=== PATIENT | male | born 1945 | race Caucasian/White ===

== ENCOUNTER 2024-05-15 17:08 | Inpatient (IN) | payer MEDICARE, SELFPAY ==
[2024-05-15] VITALS (16 sets, daily range): BP systolic 99–149; BP diastolic 52–76; BMI 27.3
--- NOTE | 2024-05-15 11:26 | ED.GENMED ---
History of Present Illness
<Meenakshi Ortiz PA-C - Last Filed: 05/15/24 17:14>
General
Chief Complaint: Abdominal Pain
Source: patient
Exam Limitations: none
Time Seen by Provider: 05/15/24 11:10
Nursing documentation reviewed up to this point in time: agreed with
History of Present Illness
History of Present Illness:
Patient is a 78-year-old male with history of ulcerative colitis, hypertension presenting to the emergency department for evaluation of acute onset right lower abdominal pain around 4:00 this morning. Patient states that he woke up from sleep
around 4 AM with right lower abdominal pain. Pain has become more consistent since. He has had multiple episodes of dry heaving and 1 episode of vomiting upon arrival to the emergency department. He has had very little appetite today although
states he was at his baseline and had a full dinner last night
Patient denies any exacerbating or alleviating factors of pain. There is no radiation around to back. Patient denies any associated fever, chills, urinary symptoms, hematuria, diarrhea/constipation. Did have a bowel movement this morning which
was normal.
No history of abdominal surgeries.
Review of Systems
<Meenakshi Ortiz PA-C - Last Filed: 05/15/24 17:14>
Review of Systems
Allergies reviewed?: Yes
All Other Systems: ROS reviewed and negative except as documented in HPI and ROS
Phy Exam
<Meenakshi Ortiz PA-C - Last Filed: 05/15/24 17:14>
Physical Exam
Physical Exam:
Vitals: Patient's vital signs are stable. Afebrile
General: Patient is well appearing, no acute distress. Nontoxic appearing
Skin: Warm and dry, no rashes or lesions
Head: Normocephalic, atraumatic
Eyes: Sclera nonicteric. EOMs intact. No nystagmus.
Throat: Protecting airway
Neck: Normal ROM, no cervical spine tenderness, no meningismus
Cardiac: Regular rate and rhythm, no murmurs.
Pulm: Normal respiratory effort, no wheezes, rales, rhonchi heard on exam.
Abdomen: Abdomen soft. Moderate abdominal tenderness in right lower quadrant voluntary guarding. No rebound tenderness. No CVA tenderness.
Extremities: No evidence of cyanosis or edema. Palpable distal pulses
Neuro: Grossly intact.
Psychiatric: Normal affect.
Course
<Meenakshi Ortiz PA-C - Last Filed: 05/15/24 17:14>
Orders/Labs/Results
Orders:
Orders
05/15/24 11:23
Abdomen/Pelvis w Contrast CT [CT Abd/pelvis W Iv Cont] Urgent
Comment:
Reason For Exam: RLQ pain, vomiting
0.9% Sodium Chloride 1000 ml [Nss] 1,000 ml IV BOLUS
Ondansetron Injectable [Zofran] 4 mg IV NOW STA
05/15/24 11:26
Interrogate Pacemaker- Treatment ONCE
05/15/24 11:45
Complete Blood Count/With Diff Urgent
Comprehensive Metabolic Panel Urgent
05/15/24 12:26
Ketorolac [Toradol] 15 mg IV NOW STA
05/15/24 14:17
Urinalysis Reflex To Culture Urgent
Date Specimen was Collected: 05/15/24
Time Specimen was Collected: 14:05
05/15/24 14:34
Piperacillin/Tazo 3.375 Gram [Zosyn] 3.375 gram in 50 ml IV NOW
05/15/24 14:42
Consult Surgery [SURGICAL CONSULT] Urgent
Consulting Provider: Lane Moran
Was physician already notified: Yes
05/15/24 16:01
EKG [Electrocardiogram (*1)] Urgent
Reason for Study: PreOp
05/15/24 16:29
Admit/Transfer Patient As Directed
Co-Sign Provider:
Level of Care: Inpatient admission
Assign to:: Telemetry
Physician / Group: martín grady
Diagnosis: acute appendititis, hx cardiomyopathy EF 40%
Reason for Telemetry: Arrhythmia
Date to Stop Telemetry: 05/18/24
Time to Stop Telemetry: 11:00
Reason for Hospitalization: acute appendititis, hx cardiomyopathy EF 40%
Expected length of stay greater than two midnights?: Yes
ELOS- Estimated Length of Stay in days: 3
I certify the patient meets the requirements for IP care: Yes
Code Status As Directed
Resuscitation Status: Full Code
05/15/24 16:33
PRN Pain Medication Management As Directed
May give lesser potent ordered pain med per pt: Yes
preference::
Protocol:: Medication orders for pain may be administered in a
manner that supports deferring to patient preference
when the pt is:
- Requesting an ordered lesser potent pain medication.
Least to most potent pain medications are defined
as: acetaminophen < NSAID < tramadol < opioids
(morphine, oxycodone, hydromorphone).
- Requesting a lesser dose of the same medication IF
ORDERED.
- Requesting a less intrusive route of administration
if both routes are prescribed by the provider (PO <
IV).
05/15/24 16:37
HYDROmorphone [Dilaudid] 0.25 mg IV PACU-Q5MPRN PRN
HYDROmorphone [Dilaudid] 0.5 mg IV PACU-Q5MPRN PRN
Meperidine [Demerol] 12.5 mg IV PACU-Q5MPRN PRN
Ondansetron Injectable [Zofran] 4 mg IV PACU-ONCEPRN PRN
Prochlorperazine [Compazine] 5 mg IV PACU-ONCEPRN PRN
Notify MD As Directed
Notify physician if: for SDS patients with known or suspected sleep obstructive sleep apnea, monitor in the
PACU.
Notify MD for any apneic/desaturation episodes
O2 Therapy [RESP] Urgent
Titrate/Wean O2 to maintain O2 sat greater than (%): 92
Special Instructions: -Provide supplemental oxygen to achieve O2 sat of 92% or greater.
-After 15 min, may wean O2 and discontinue if patient is able to maintain O2 sat of 92%
or greater during recovery period.
If patient is a discharge home, without oxygen therapy, notify anestheiologist if
unable to maintain O2 SAT of 92% or greater on room air for MD clearance.
05/15/24 16:38
Dexamethasone Sod Phosphate [Decadron] 20 mg .ROUTE .STK-MED ONE
Fentanyl Citrate/Pf [Sublimaze] 100 mcg .ROUTE .STK-MED ONE
Lidocaine HCl/Pf [Xylocaine-Mpf 1% Vial] 50 mg .ROUTE .STK-MED ONE
Ondansetron Injectable [Zofran] 4 mg .ROUTE .STK-MED ONE
Propofol [Diprivan] 20 ml .ROUTE .STK-MED
Rocuronium [place] [Rocuronium] 50 mg .ROUTE .STK-MED ONE
05/15/24 16:40
Bupivacaine 0.5%Pf/Epinephrin [Sensorcain-Mpf Epi 0.5%-0.0005] 30 ml .ROUTE .STK-MED ONE
05/18/24 11:00
DC Protocol for Telemetry ONCE
Abnormal Lab Results
05/15/24 05/15/24
11:45 14:17
WBC 15.2 H 10^3/uL
(4.8-10.8)
RBC 4.45 L 10^6/uL
(4.70-6.10)
MCHC 32.3 L g/dL
(33.0-37.0)
MPV 11.1 H fL
(7.4-10.4)
Abs Immat Gran (auto) 0.1 H 10^3/uL
(0-0.05)
Absolute Neuts (auto) 14.0 H 10^3/uL
(1.4-6.5)
Absolute Lymphs (auto) 0.5 L 10^3/uL
(1.2-3.4)
Neutrophils % 92.0 H %
(42.2-75.2)
Lymphocytes % 3.2 L %
(20.5-51.1)
Glucose 102 H mg/dl
(70-99)
Urine Ketones 1+ A
(Negative)
05/15/24 11:45
05/15/24 11:45
Vital Signs
Initial and Last Documented VS:
Initial Vital Signs
Temp Pulse Resp BP Pulse Ox
97.9 F 78 16 123/71 98
05/15/24 09:56 05/15/24 09:56 05/15/24 09:56 05/15/24 09:56 05/15/24 09:56
Last Documented Vital Signs
Temp Pulse Resp BP Pulse Ox
97.9 F 79 21 120/52 94
05/15/24 09:56 05/15/24 13:07 05/15/24 13:07 05/15/24 15:00 05/15/24 14:48
<Eulogio Sandhu MD - Last Filed: 05/15/24 14:36>
Orders/Labs/Results
Orders:
Orders
05/15/24 11:23
Abdomen/Pelvis w Contrast CT [CT Abd/pelvis W Iv Cont] Urgent
Comment:
Reason For Exam: RLQ pain, vomiting
0.9% Sodium Chloride 1000 ml [Nss] 1,000 ml IV BOLUS
Ondansetron Injectable [Zofran] 4 mg IV NOW STA
05/15/24 11:26
Interrogate Pacemaker- Treatment ONCE
05/15/24 11:45
Complete Blood Count/With Diff Urgent
Comprehensive Metabolic Panel Urgent
05/15/24 12:26
Ketorolac [Toradol] 15 mg IV NOW STA
05/15/24 14:17
Urinalysis Reflex To Culture Urgent
Date Specimen was Collected: 05/15/24
Time Specimen was Collected: 14:05
05/15/24 14:34
Piperacillin/Tazo 3.375 Gram [Zosyn] 3.375 gram in 50 ml IV NOW
05/15/24 14:42
Consult Surgery [SURGICAL CONSULT] Urgent
Consulting Provider: Lane Moran
Was physician already notified: Yes
05/15/24 16:01
EKG [Electrocardiogram (*1)] Urgent
Reason for Study: PreOp
05/15/24 16:29
Admit/Transfer Patient As Directed
Co-Sign Provider:
Level of Care: Inpatient admission
Assign to:: Telemetry
Physician / Group: martín grady
Diagnosis: acute appendititis, hx cardiomyopathy EF 40%
Reason for Telemetry: Arrhythmia
Date to Stop Telemetry: 05/18/24
Time to Stop Telemetry: 11:00
Reason for Hospitalization: acute appendititis, hx cardiomyopathy EF 40%
Expected length of stay greater than two midnights?: Yes
ELOS- Estimated Length of Stay in days: 3
I certify the patient meets the requirements for IP care: Yes
Code Status As Directed
Resuscitation Status: Full Code
05/15/24 16:33
PRN Pain Medication Management As Directed
May give lesser potent ordered pain med per pt: Yes
preference::
Protocol:: Medication orders for pain may be administered in a
manner that supports deferring to patient preference
when the pt is:
- Requesting an ordered lesser potent pain medication.
Least to most potent pain medications are defined
as: acetaminophen < NSAID < tramadol < opioids
(morphine, oxycodone, hydromorphone).
- Requesting a lesser dose of the same medication IF
ORDERED.
- Requesting a less intrusive route of administration
if both routes are prescribed by the provider (PO <
IV).
05/15/24 16:37
HYDROmorphone [Dilaudid] 0.25 mg IV PACU-Q5MPRN PRN
HYDROmorphone [Dilaudid] 0.5 mg IV PACU-Q5MPRN PRN
Meperidine [Demerol] 12.5 mg IV PACU-Q5MPRN PRN
Ondansetron Injectable [Zofran] 4 mg IV PACU-ONCEPRN PRN
Prochlorperazine [Compazine] 5 mg IV PACU-ONCEPRN PRN
Notify MD As Directed
Notify physician if: for SDS patients with known or suspected sleep obstructive sleep apnea, monitor in the
PACU.
Notify MD for any apneic/desaturation episodes
O2 Therapy [RESP] Urgent
Titrate/Wean O2 to maintain O2 sat greater than (%): 92
Special Instructions: -Provide supplemental oxygen to achieve O2 sat of 92% or greater.
-After 15 min, may wean O2 and discontinue if patient is able to maintain O2 sat of 92%
or greater during recovery period.
If patient is a discharge home, without oxygen therapy, notify anestheiologist if
unable to maintain O2 SAT of 92% or greater on room air for MD clearance.
05/15/24 16:38
Dexamethasone Sod Phosphate [Decadron] 20 mg .ROUTE .STK-MED ONE
Fentanyl Citrate/Pf [Sublimaze] 100 mcg .ROUTE .STK-MED ONE
Lidocaine HCl/Pf [Xylocaine-Mpf 1% Vial] 50 mg .ROUTE .STK-MED ONE
Ondansetron Injectable [Zofran] 4 mg .ROUTE .STK-MED ONE
Propofol [Diprivan] 20 ml .ROUTE .STK-MED
Rocuronium [place] [Rocuronium] 50 mg .ROUTE .STK-MED ONE
05/15/24 16:40
Bupivacaine 0.5%Pf/Epinephrin [Sensorcain-Mpf Epi 0.5%-0.0005] 30 ml .ROUTE .STK-MED ONE
05/18/24 11:00
DC Protocol for Telemetry ONCE
Abnormal Lab Results
05/15/24 05/15/24
11:45 14:17
WBC 15.2 H 10^3/uL
(4.8-10.8)
RBC 4.45 L 10^6/uL
(4.70-6.10)
MCHC 32.3 L g/dL
(33.0-37.0)
MPV 11.1 H fL
(7.4-10.4)
Abs Immat Gran (auto) 0.1 H 10^3/uL
(0-0.05)
Absolute Neuts (auto) 14.0 H 10^3/uL
(1.4-6.5)
Absolute Lymphs (auto) 0.5 L 10^3/uL
(1.2-3.4)
Neutrophils % 92.0 H %
(42.2-75.2)
Lymphocytes % 3.2 L %
(20.5-51.1)
Glucose 102 H mg/dl
(70-99)
Urine Ketones 1+ A
(Negative)
05/15/24 11:45
05/15/24 11:45
Vital Signs
Initial and Last Documented VS:
Initial Vital Signs
Temp Pulse Resp BP Pulse Ox
97.9 F 78 16 123/71 98
05/15/24 09:56 05/15/24 09:56 05/15/24 09:56 05/15/24 09:56 05/15/24 09:56
Last Documented Vital Signs
Temp Pulse Resp BP Pulse Ox
97.9 F 79 21 120/52 94
05/15/24 09:56 05/15/24 13:07 05/15/24 13:07 05/15/24 15:00 05/15/24 14:48
<Meenakshi Ortiz PA-C - Last Filed: 05/15/24 17:14>
MDM/Problems Addressed
Differential Diagnosis Includes:
Not limited to: Appendicitis, diverticulitis, incarcerated hernia, kidney stone, pyelonephritis, constipation, bowel obstruction, IBD flare, etc.
MDM/Problems Addressed:
78-year-old male presenting with acute onset right lower quadrant abdominal pain associated with vomiting. No fevers or associated urinary symptoms. No history of abdominal surgeries. Patient's vital signs are stable, he is afebrile. Physical
exam as above. Patient does have mild to moderate tenderness in right lower quadrant with voluntary guarding. No palpable masses. No CVA tenderness. Cardio/pulmonary assessment unremarkable. Differential diagnosis broad at this time although
considerations include possible appendicitis, diverticulitis, kidney stone, cystitis, question hernia, etc. Will check basic labs, urine, CT abdomen/pelvis. Will give fluids, Zofran. Will closely monitor and reassess update above.
Chronic conditions affecting care:
N/A
Acute Exacerbation and/or Progression of Chronic Illness:
N/A
<Meenakshi Ortiz PA-C - Last Filed: 05/15/24 17:14>
*Radiology
Radiology exam reviewed: preliminary read by ED provider and radiology read reviewed (Acute appendicitis with possible small perforation)
*Pulse Oximetry
Patient hypoxic: no
*EKG
Interpreted by ED Provider?: NA
*Supervisor Shipping Room Interpretation
Rate: Supervisor Shipping Room- N/A
*Critical Care Note
Total Time (30-74mins, 75-104mins- exclusive of procedures): Not Applicable
<Meenakshi Ortiz PA-C - Last Filed: 05/15/24 17:14>
Update Note
Update Note:
Update 1:30 PM: Labs reviewed. Patient does have a leukocytosis of 15.2 with left shift. Otherwise no clinically significant abnormalities. Urinalysis pending. CT pending.
Update 2:30 PM: Into reassess patient at bedside who does have improvement in pain following Toradol urinalysis shows no signs of infection. CT scan shows suspected acute appendicitis with possible small localized perforation. Case was discussed
with general surgeon, Dr. Moran who will come down to evaluate patient at bedside. Patient started on IV Zosyn in emergency department and admitted to hospitalist team in stable condition. Plan for likely OR later today.
ED Attending Note
<Meenakshi Ortiz PA-C - Last Filed: 05/15/24 17:14>
-
Portions of this chart may have been created with voice recognition software.� Occasional wrong word or��sound alike� substitutions may have occurred due to the inherent limitations of voice recognition software.
<Eulogio Sandhu MD - Last Filed: 05/15/24 14:36>
ED Attending Note
Patient seen and examined by attending physician: Yes
ED Attending Note:
I have seen and evaluated the patient with a [id number] encounter. I have spoken to the advance practicer provider and involved in the medical history, the physical exam, medical decision making.
Evaluation and management service: agree unless noted differently below.
Results interpretation: agree unless noted differently below.
Focused HPI: 78-year-old male with past medical history as document presents to the emergency room for evaluation of abdominal pain. Patient reports onset of symptoms overnight around 4 AM and have been constant since that time. He reports pain in
the right lower quadrant radiates towards the inguinal region. No clear triggering or relieving factors noted. Associated with nausea and dry heaves. No diarrhea or constipation. No urinary symptoms. No fevers or chills. Denies similar
symptoms in the past. Does have prior history of inguinal hernias.
Physical exam: Awake alert no distress. Vital signs normal. Abdomen soft, tender to palpation right lower quadrant and right pelvic region; no scrotal swelling noted.
Medical Decision Makin-year-old male presents for evaluation of right lower quadrant abdominal pain since 4 AM. Vitals and exam as above. Labs were sent off in triage including CBC which showed a leukocytosis, CMP shows no clinically
significant abnormalities. Urinalysis pending. Sent for CT abdomen pelvis. Pain control and fluids. Reassess.
CT shows acute appendicitis with likely contained perforation. Treat with antibiotics. Discussed with general surgery. Admission.
Discharge Plan
Departure
Patient Disposition: Admit
Date of Disposition: 05/15/24
Time of Disposition: 14:51
Presentation/result/management discussed w/ accepting MD/DO: Hospitalist
Discharge Problem:
Acute appendicitis
Interventions
Interventions:
*Risk Screen - Suicide Last Done: 05/15/24 09:56
*General Assessment Last Done: 05/15/24 09:56
*Neglect/Abuse Screening Last Done: 05/15/24 09:56
ED- Fall Risk Assessment Last Done: 05/15/24 11:25
*ED COVID-19 Vaccine History Last Done: 05/15/24 11:25
VO-Hboqxa-Nckgnjhvrs Assessment Last Done: 05/15/24 11:25
[2024-05-15 11:58] LABS: % Basophils 0.3 % (0-2); % Eosinophils 0.1 % (0-6); % Immature Granulocytes 0.4 % (0-0.5); % Lymphocytes 3.2 % (20.5-51.1); Absolute Basophils 0.1 10^3/uL (0-0.2); Absolute Immature Granulocytes 0.1 10^3/uL (0-0.05); Absolute Lymphocytes 0.5 10^3/uL (1.2-3.4); Absolute Monocytes 0.6 10^3/uL (0.1-0.6); Hematocrit 41.8 % (39.0-52.0); Hemoglobin 13.5 g/dL (13.0-18.0); Mean Corp Hgb Conc. 32.3 g/dL (33.0-37.0); Mean Corpuscular Hgb 30.3 pg (27.0-31.0); Mean Corpuscular Volume 93.9 fL (80.0-94.0); Mean Platelet Volume 11.1 fL (7.4-10.4); Nucleated Red Blood Cells % 0 % (-); Platelet Count 182 10^3/uL (130-400); Red Blood Cell Count 4.45 10^6/uL (4.70-6.10); Red Cell Dist. Width 14.5 % (11.5-14.5); White Blood Cell Count 15.2 10^3/uL (4.8-10.8)
[2024-05-15] MEDS: ZOFRAN 4 MG IV (12:02)
[2024-05-15] MEDS: NSS 1000 IV ×2 (12:02→20:00)
[2024-05-15 12:18] LABS: ALT (SGPT) 34 U/L (0-50); AST (SGOT) 38 U/L (17-59); Albumin 4.3 g/dl (3.5-5.0); Alkaline Phosphatase 103 U/L (38-126); Blood Urea Nitrogen 16 mg/dl (9-20); Calcium 9.3 mg/dl (8.4-10.2); Carbon Dioxide 27 mmol/L (22-30); Chloride 100 mmol/L (98-107); Estimated Creatinine Clearance 65 ml/min; Glucose 102 mg/dl (70-99); Potassium 4.3 mmol/L (3.5-5.1); Sodium 136 mmol/L (135-145); Total Bilirubin 0.7 mg/dl (0.2-1.3); Total Protein 7.1 g/dl (6.3-8.2); eGFR > 60.00
[2024-05-15] MEDS: TORADOL 15 MG IV (13:04)
[2024-05-15 14:45] LABS: Urine Albumin Negative (Neg - Trace); Urine Bilirubin Negative (Negative); Urine Character Clear (Clear); Urine Color Yellow; Urine Glucose Negative (Negative); Urine Ketone 1+ (Negative); Urine Leukocyte Negative (Negative); Urine Nitrite Negative (Negative); Urine Occult Blood Negative (Negative); Urine Urobilinogen Negative (Neg - 1+)
[2024-05-15] MEDS: ZOSYN 50 IV ×2 (15:00→21:05)
--- NOTE | 2024-05-15 15:14 | HPS.HSE ---
Family Physician
-
Family Physician: Marisol Mcintosh
Chief Complaint
-
Right lower quadrant abdominal pain onset 4 AM with 1 episode vomiting
History of Present Illness
78-year-old male complaining of acute onset right lower quadrant abdominal pain at 4:00 this a.m. He reports he woke up from sleep at around 4 AM with right lower quadrant abdominal pain that has become more consistent. He has had several episodes
of dry heaving with 1 episode of vomiting upon arrival to the ER. He does note decreased appetite today, but had a full dinner last night. He denies any exacerbating or alleviating factors there is no radiation around to the back. He denies
fever, chills, urinary symptoms, diarrhea, constipation, chest pain, palpitations, shortness of breath, cough, headache, dizziness. He does have past medical history of ulcerative colitis, HTN, BPH ,HLD, gout, nonobstructive CAD cardiac cath 15
years ago one-vessel 58% no stents placed, Permanent pacemaker placed June 2013�syncope October 2013 pacemaker lead broke and it was removed then changed to pacemaker defibrillator in December [address] Brandon Mcclain, cardiomyopathy EF
25% August> EF 40% January 2024 had echo at cardiology office
Medical History
Past Medical History
Past Medical History: Reports Other
Additional Past Medical History:
ulcerative colitis
HTN
BPH
HLD
gout
nonobstructive CAD�via cath September 2023 [facility]
Permanent pacemaker secondary to syncope placed June 2013�syncope October 2013 pacemaker lead broke and it was removed then changed in December 2013
Pacemaker with DEFIBRILLATOR placed in November [address] Brandon Mcclain
Cardiomyopathy unclear type EF per patient 25% in August and September started on Entresto then echo January 2024 EF 40%
Past Surgical History: Reports Other
Additional Past Surgical History:
Bilateral inguinal hernia repair
Permanent pacemaker placed June 2013�syncope October 2013 pacemaker lead broke and it was removed then changed to pacemaker defibrillator in November [address] Brandon Mcclain
Cardiac 15 years ago one-vessel
Inguinal hernia bilateral repair
Social History
Tobacco: Non-smoker
Alcohol: Occasional (3 drinks a week 6 to 8 ounces wine)
Personal: (Has been since 2005 but not legally )
Living: Alone ([facility])
Employment: Retired
Family History
Family History: Other (Father age 61 CABG, HTN, age 80 complications of endocarditis, mother age 94 history of mild dementia, HTN, lack of blood pressure medicine being given at senior care which led to a stroke and cause
, 1 brother alcohol abuse 1 brother living age 72 hypertens)
Allergies / Home Medications
Allergies reflects when Allergies were last updated in [employer].
Home Medications with original date entered in [employer]
Allergy/Medication List:
Allergies
Allergy/AdvReac Type Severity Reaction Status Date / Time
No Known Allergies Allergy Verified 05/15/24 09:56
Home Medications
Aspir-81 162 mg PO DAILY 05/15/24
allopurinol 300 mg tablet 300 mg PO DAILY 05/15/24
atorvastatin 40 mg tablet (Lipitor) 40 mg PO HS 05/15/24
carvedilol 6.25 mg tablet (Coreg) 12.5 mg PO DAILY 05/15/24
finasteride 5 mg tablet 5 mg PO DAILY 05/15/24
sacubitril 97 mg-valsartan 103 mg tablet (Entresto) 1 tab PO DAILY 05/15/24
sulfasalazine 500 mg tablet 500 mg PO AC 05/15/24
tamsulosin 0.4 mg capsule (Flomax) 0.8 mg PO QPM 05/15/24
trazodone 50 mg tablet 50 mg PO HS 05/15/24
Review of Systems
-
History Source: Patient
A 12 point ROS was completed and negative except as noted: Yes
Constitutional: Denies Fever, Fatigue or Chills
EENT: Denies Sore Throat, Mouth Pain, Mouth Swelling or Runny Nose
Respiratory: Denies Cough or Trouble Breathing
Cardiac: Denies Chest Pain, Diaphoresis, Palpitations or Syncope
Abdomen/GI: Reports Abdominal Pain (Right lower/umbilical), Nausea and Vomiting ([address] ER); Denies Diarrhea, Constipated, Bloody Stools or Black Stools
: Denies Dysuria, Frequency, Flank Pain, Incontinence, Difficulty Voiding, Urgency, Bleeding or Dark Urine
Musculoskeletal: Denies Joint Pain or Edema
Skin: Denies Itching or Rash
Neurological: Denies Dizzy, Headache or Weakness
Endocrine: Reports No Symptoms
Hematologic/Lymphatic: Reports No Symptoms
Psych: Reports Calm
Physical Exam
Vital Signs
Vital Signs
Temp Pulse Resp BP Pulse Ox
97.9 F 79 21 120/52 94
05/15/24 09:56 05/15/24 13:07 05/15/24 13:07 05/15/24 15:00 05/15/24 14:48
Physical Exam
General: Comfortable and Conversant; No Pain, Fever or Chills
HEENT: NormoCephalic, Anicteric, Moist mucous membranes, PERRLA, [place] Conjunctivae and No Ptosis
Respiratory: Clear; No Wheezes, Rales or Rhonchi
Cardiac: S1/S2 and Regular Rhythm; No Murmur, Rub, Gallop or Peripheral Edema
Breast: Deferred by me
GI: Soft, Non Distended, Normal Bowel Sounds, Tender (Right umbilical) and No Hepatosplenomegaly
Rectal: Deferred by Provider
Genito-urinary: Deferred by me
Musculoskeletal: No Clubbing, No Cyanosis and No Edema
Skin: Warm and Dry; No Rash
Neuro: AO x 3, No Motor Deficits, Nonfocal/grossly intact, Cranial Nerves Intact and No Sensory Deficits; No Slurred Speech, Facial Droop, Tremors or Sedated
Psych: Calm
Laboratory Results
-
05/15/24 11:45
05/15/24 11:45
Laboratory Results
Total Bilirubin 0.7 mg/dl (0.2-1.3) 05/15/24 11:45
AST 38 U/L (17-59) 05/15/24 11:45
ALT 34 U/L (0-50) 05/15/24 11:45
Alkaline Phosphatase 103 U/L (38-126) 05/15/24 11:45
Data Reviewed
-
CT Scan: Report Reviewed by me
Lab Data: Labs Reviewed by me
Impression/Plan
-
Impression/plan:
Admit to telemetry
#Acute appendicitis
WBC 15.2 with left shift, HR 80, 97.9F, 140/73
-Consult general surgery�DrMario Alberto Moran aware
-N.p.o. except meds possible OR tonight 05/15/2024
-IV NSS 1 L given in ER, continue IV NSS 100 cc an hour
-IV Zofran
-IV Toradol given in ER for pain
-IV Zosyn 3.375 g given in ER, continue Zosyn
-Follow CBC, CMP
-Check preop EKG
CT abdomen pelvis with IV contrast:
1. Marked right lower quadrant inflammatory changes likely centered about a small tubular structure most likely representing the appendix and most likely representing ACUTE APPENDICITIS evaluation overall
limited without oral contrast, but with findings suggesting accompanying small localized perforation..
2. Prostate gland is enlarged with extrinsic impression upon the urinary bladder base.
3. Mild relative diffuse thickening of the wall of the urinary bladder most likely on the basis of bladder outlet obstruction
4. Small simple left renal cyst.
5. Subcentimeter low-attenuation right renal lesion too small to characterize.
#Ulcerative colitis Dx 40 years ago
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
-Continue sulfasalazine 500 mg before meals when allowed to eat
#Permanent Pacemaker�syncope ,placed June 2013�syncope October 2013 pacemaker lead broke and it was removed
-changed to PACEMAKER/ DEFIBRILLATOR in December [address] Brandon ASH [facility]
#Cardiomyopathy unclear type
-EF per patient 25% in August and September started on Entresto then echo January 2024 EF 40%
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 Brandon ASH [facility]
#Nonobstructive CAD
Had cardiac cath September 2023 with some vessels occlusion less than 40% by Dr. Brandon ASH at [facility]
-Continue aspirin 162 mg daily last dose was yesterday 05/14/2024 in a.m. will continue after surgery
-Continue Lipitor 40 mg at bedtime, Coreg 12.5 mg daily
#HTN�benign
BP 140/73
-Continue Coreg 12.5 mg p.o. daily
#HLD
-Continue Lipitor 40 mg at bedtime
#BPH
Prostate gland is enlarged with extrinsic impression upon the urinary bladder base on CT today 05/15/2024
-Continue Flomax 0.8 mg every afternoon, finasteride 5 mg daily
-Bladder scan per protocol
#Gout
-Continue allopurinol 300 mg daily
DVT prophylaxis
SCDs until after surgery then consider subcu Lovenox or heparin
Full code patient states his daughter and son would be his decision makers he also has his stepson who would also away and
--- NOTE | 2024-05-15 15:31 | CON.GS ---
Consultation
-
Requesting Provider: Diana
Performing Provider: Luisa
Reason for Consultation: Acute appendicitis
Medical History
-
Chief Complaint: Abd pain
History of Present Illness:
78M with acute onset abd pain that woke him from sleep about 4AM. Localized to RLQ without radiation or migration. Endorses nausea with single emesis episode upon arrival to ED. Currently endorses anorexia. Denies f/c. Hx of UC but this felt
different, he is stable on sulfasalazine. Last c-scope about 3 years ago with mild rectal/sigmoid inflammation/ulceration.
Past Medical History
Past Medical History: CAD and Other (gout, HLD, BPH, HTN, UC)
Past Surgical History: Cardiac (pacer) and Hernia Repair (B/L IHR; pacemaker implantation)
Social History
Tobacco: Non-Smoker
Alcohol: None
Drug: None
Family History
Family History: Reviewed & Noncontributory
Allergies / Home Medications
Allergy/AdvReac Type Severity Reaction Status Date / Time
No Known Allergies Allergy Verified 05/15/24 09:56
�Medication �Instructions �Recorded �Confirmed �Type
allopurinol 300 mg tablet 300 mg PO DAILY 05/15/24 05/15/24 History
atorvastatin 40 mg tablet (Lipitor) 40 mg PO HS 05/15/24 05/15/24 History
carvedilol 6.25 mg tablet (Coreg) 12.5 mg PO DAILY 05/15/24 05/15/24 History
finasteride 5 mg tablet 5 mg PO DAILY 05/15/24 05/15/24 History
sacubitril 97 mg-valsartan 103 mg 1 tab PO DAILY 05/15/24 05/15/24 History
tablet (Entresto)
sulfasalazine 500 mg tablet 500 mg PO AC 05/15/24 05/15/24 History
tamsulosin 0.4 mg capsule (Flomax) 0.8 mg PO QPM 05/15/24 05/15/24 History
trazodone 50 mg tablet 50 mg PO HS 05/15/24 05/15/24 History
Review of Systems
-
A 10 point review of systems was completed, and was negative except as per HPI.
Physical Exam
Vital Signs
Temp Pulse Resp BP Pulse Ox
97.9 F 79 21 120/52 94
05/15/24 09:56 05/15/24 13:07 05/15/24 13:07 05/15/24 15:00 05/15/24 14:48
05/14/24 05/15/24 05/16/24
06:59 06:59 06:59
Actual Weight 72 kg
Body Mass Index (BMI) 27.3
Lab Results
05/15/24 11:45
05/15/24 11:45
WBC 15.2 10^3/uL (4.8-10.8) H 05/15/24 11:45
Hgb 13.5 g/dL (13.0-18.0) 05/15/24 11:45
Hct 41.8 % (39.0-52.0) 05/15/24 11:45
Plt Count 182 10^3/uL (130-400) 05/15/24 11:45
Abs Immat Gran (auto) 0.1 10^3/uL (0-0.05) H 05/15/24 11:45
Neutrophils % 92.0 % (42.2-75.2) H 05/15/24 11:45
Physical Exam
General: Well Developed, Well Nourished and No Apparent Distress
GI: Soft, Non Tender (very mild ttp with deep palp just medial to RLQ) and Non Distended
Skin: Warm and Dry
Neuro: AO x 3
Psych: Calm
Data Reviewed
-
CT Scan: Image Personally Visualized and interpreted, Report Reviewed by me, Discussed with Physician, Discussed with Nurse and Discussed with Patient
Labs: Labs Reviewed by me, Discussed with Physician, Discussed with Nurse and Discussed with Patient
Old Records: Reviewed
Assessment / Plan
-
78M with acute appendicitis with possible perforation in setting of well-controlled UC
AFVSS, minimal ttp though he received toradol just prior to my encounter
WBC 15K
CT A/P with stranding around appendix and a single bubble of extraluminal air, possible small fluid pocket without rim enhancement
Plan:
Admit to Hospitalist
IV abx
OCTOR for lap appy
NPO for now
PRN pain meds/anti-emetics
SCDs
--- NOTE | 2024-05-15 15:45 | W.PN.UPDATE ---
Update Note
Progress Note Update
This note serves as an addendum to the H&P by photoengraving finisher REYMUNDO Vanesa JUAREZ
HPI
78M HX ulcerative colitis, HTN, BPH ,HLD, gout, permanent pacemaker seen at ER:
- Woke up with acute onset RLQ abdominal pain at 4 AM then the pain become more consistent
- - denies any exacerbating or alleviating factors there is no radiation around to the back.
- several episodes of dry heaving with 1 episode of vomiting upon arrival to the ER.
- decreased appetite today
- had a full dinner last night.
ROS
- denies fever, chills, urinary symptoms, diarrhea, constipation
- denies chest pain, palpitations, shortness of breath, cough, headache, dizziness.
PHX: see above
Reviewed VS: stable and unremarkable
Vital Signs
Temp Pulse Resp BP Pulse Ox
97.9 F 79 21 120/52 94
05/15/24 09:56 05/15/24 13:07 05/15/24 13:07 05/15/24 15:00 05/15/24 14:48
PE
Gen: NAD, not toxic
HEENT: anciteric
Neck: supple
Lungs: CTA
Cor: RRR S1 S2
Abdomen: soft BS
COMBINATION MACHINE TENDER: AAO3
MS: no edema
Psych: normal mood and affect
Data
Laboratory Tests
05/15/24
11:45
WBC 15.2 H
eGFR > 60.00
CT Abd/pelvis W Iv Cont
- Marked RLQ inflammatory changes likely centered about a small tubular structure most likely representing the appendix and most likely representing ACUTE APPENDICITIS evaluation overall limited without oral contrast, but with findings suggesting
accompanying small localized perforation.
- Small simple left renal cyst.
- Subcentimeter low-attenuation right renal lesion too small to characterize.
Last hospitalist admission:
ASSESSMENT & PLAN
Pending Rx reconciliation
Acute appendicitis +/_ small localized perforation.
- agree with NPO and IVF, PRN algesia
- Empiric IV Zosyn
- IV Zofran PRN
- Follow CBC, CMP
- GS consulted
Implant permanent pacemaker
Benign HTN
- ont. Coreg 12.5 mg p.o. daily
- cont Entresto
Ulcerative colitis HX
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
- Continue sulfasalazine 500 mg before meals when allowed to eat
HLD
- 2 Baby ASA daily
- Continue Lipitor 40 mg at bedtime
BPH
Prostate gland is enlarged with extrinsic impression upon the urinary bladder base on CT today 05/15/2024
- Continue Flomax 0.8 mg every afternoon, finasteride 5 mg daily
- Bladder scan per protocol
Gout
- Continue allopurinol 300 mg daily
DVT Px: SCD
Full code
IP MS
--- NOTE | 2024-05-15 16:46 | W.SUR.PREOP ---
Pre-Operative Surgical Note
-
I have examined this patient prior to the performance of the scheduled procedure.
The patient's condition is unchanged from the time of the current History and
Physical and the patient is able to undergo the scheduled procedure.
--- NOTE | 2024-05-15 18:34 | W.IMMPOSTOP ---
Surgical Immed Post Op Note
-
Primary Surgeon: Poncho Perry MD
Assisting Surgeon: None
Pre-op Diagnosis: Perforated appendicitis
Post-op Diagnosis: Same
Procedure Performed:
1. Laparoscopic appendectomy
2. Drainage of intra-abdominal abscess
Anesthesia Type: General
Specimen / Cultures:
1. Pelvic fluid for culture aerobic and anaerobic
2. Appendix
Estimated Blood Loss: 3 cc
Complications: None
Operative Findings: Perforated appendicitis, with the appendix draped over the pelvic brim and an abscess in the rectovesicular space. This was cultured and then suctioned and irrigated until clear. The base of the appendix appeared healthy and so
was taken with 0 PDS Endoloops x 2.
POST OP PLAN:
Imaging: None
Labs: Routine AM
Diet: Clears tonight, can advance diet tomorrow to regular though potential ileus is possible given the perforated nature of this appendicitis
Analgesia: Tylenol 650mg q6 Saulo, Dilaudid 0.5mg q2h PRN
Neuro/vascular checks: q4h
AC/AP: Hold Therapeutic AC, Ok for DVT PPx
Activity: Ad Meghana
Wound/Incisions/Drains: Routine, RICARDO to bulb suction.
Abx: Will do a 4-day course of postop antibiotics
Dispo: RNF, anticipate discharge home with or without drain depending on output and clinical course
--- NOTE | 2024-05-15 18:38 | OR.RPT ---
Operative Report
Operative Report
Patient Name: Bhavesh Cole
: 1945
Date of Operation: 05/15/2024
Preoperative Diagnosis: Acute perforated appendicitis
Postoperative Diagnosis: Same
Procedure(s):
1. Laparoscopic Appendectomy
2. Drainage of intra-abdominal abscess
Surgeon(s):
Dr. Perry
Head Of Global Strategic Partnerships(s):
None
Anesthesia: General
Estimated Blood Loss: 3 cc
Urine Output: None
Drains/Lines/Implants: None
Specimens:
1. Appendix
2. Pelvic fluid for Gram stain and culture aerobic and anaerobic.
HPI/Surgical Indications:
This is a 78-year-old male with a history of UC who presents with a 1 day history of abdominal pain. Exam, labs and imaging are consistent with perforated acute appendicitis. Risks/Benefits/Alternatives were discussed at length, and the patient
agreed to proceed with surgery.
Operative Findings: Perforated appendicitis, with the appendix draped over the pelvic brim and an abscess in the rectovesicular space. This was cultured and then suctioned and irrigated until clear. The base of the appendix appeared healthy and so
was taken with 0 PDS Endoloops x 2.
Procedure Description:
The patient was placed in the supine position, with the left arm tucked, and general anesthesia was induced. The abdomen was prepared and draped in a sterile fashion so as to expose the entire abdomen. A surgical time out was taken. Abdominal access
was obtained with an 12 mm infra-umbilical Charli Entry. After confirming no injury on entrance, two additional 5mm ports were placed in the suprapubic area just off midline and in the left lower quadrant. The patient was placed in Trendelenberg
with the right slightly up . The appendix was identified and a window was created in the mesoappendix. The appendix was perforated near the distal third as it was lying over the pelvic brim. There was a fairly large abscess cavity in the pelvis
that was suctioned and irrigated until clear.. Using a laparoscopic bipolar energy device, the meso appendix was divided. The base of the appendix appeared uninvolved and was ligated/divided using two 0-PDS Endoloops and the energy device. The
appendix was placed in a specimen retrieval bag. A 19 Greek round Flaco drain was introduced through the left lateral port and draped across the pelvis and up the right colic gutter. This was secured to the skin with a 2-0 nylon suture.
Hemostasis was confirmed and the ports were removed under visualization. The specimen was passed off the field. The umbilical port was closed with a [id number] 0-PDS and the skin for all three ports was closed with interrupted monocryls and
covered with dermabond. The patient was awoken from anesthesia in good condition and transported to the recovery area.
I was the attending physician and performed the procedure with no assistance. I was present for all portions of the case.
Poncho Perry MD
--- NOTE | 2024-05-15 19:45 | PTCARENOTE ---
Pt a 78 y/o male arrived from PACU post Lap Appy & drainage of abscess with a RICARDO drain to LLQ, daughter and friend at beside. Pt AOx3, bed in a low position, call light in reach, care ongoing.
[2024-05-15] MEDS: FLOMAX 0.8 MG PO (20:05)
[2024-05-15] MEDS: LIPITOR 40 MG PO (21:04)
[2024-05-15] MEDS: DESYREL 50 MG PO (21:05)
[2024-05-15] MEDS: DILAUDID 0.5 MG IV (22:03)
[2024-05-16] VITALS (7 sets, daily range): BP systolic 84–126; BP diastolic 48–95; PULSE 79
[2024-05-16] MEDS: ZOSYN 50 IV ×4 (03:15→21:37)
[2024-05-16] MEDS: PERCOCET 5/325 1 TABLET PO ×3 (03:30→20:43)
--- NOTE | 2024-05-16 04:00 | DOWNTIME ---
There was a [employer] Client Collection Coordinator Downtime on 05/16/2024 from 0100 to 05/16/2024 at 0350. Downtime documentation of patient's care, including medication administrations, has been reconciled in the electronic record per guidelines. Refer to the
patient's paper chart under the miscellaneous tab to see printed paper medication records and downtime forms.
[2024-05-16 06:43] LABS: % Basophils 0.1 % (0-2); % Immature Granulocytes 0.5 % (0-0.5); % Lymphocytes 2.3 % (20.5-51.1); % Monocytes 2.2 % (1.7-9.3); % Neutrophils 94.9 % (42.2-75.2); Absolute Immature Granulocytes 0.1 10^3/uL (0-0.05); Absolute Lymphocytes 0.5 10^3/uL (1.2-3.4); Absolute Monocytes 0.5 10^3/uL (0.1-0.6); Absolute Neutrophils 19.6 10^3/uL (1.4-6.5); Hematocrit 35.1 % (39.0-52.0); Mean Corp Hgb Conc. 34.2 g/dL (33.0-37.0); Mean Corpuscular Hgb 31.5 pg (27.0-31.0); Mean Corpuscular Volume 92.1 fL (80.0-94.0); Mean Platelet Volume 11.9 fL (7.4-10.4); Nucleated Red Blood Cells % 0 % (-); Platelet Count 174 10^3/uL (130-400); Red Blood Cell Count 3.81 10^6/uL (4.70-6.10); Red Cell Dist. Width 14.5 % (11.5-14.5); White Blood Cell Count 20.7 10^3/uL (4.8-10.8)
[2024-05-16 07:00] LABS: ALT (SGPT) 24 U/L (0-50); AST (SGOT) 26 U/L (17-59); Albumin 3.2 g/dl (3.5-5.0); Alkaline Phosphatase 62 U/L (38-126); Blood Urea Nitrogen 18 mg/dl (9-20); Calcium 8.3 mg/dl (8.4-10.2); Carbon Dioxide 26 mmol/L (22-30); Chloride 100 mmol/L (98-107); Estimated Creatinine Clearance 52 ml/min; Glucose 104 mg/dl (70-99); Potassium 4.1 mmol/L (3.5-5.1); Sodium 135 mmol/L (135-145); Total Bilirubin 0.9 mg/dl (0.2-1.3); Total Protein 5.7 g/dl (6.3-8.2); eGFR > 60.00
[2024-05-16] MEDS: ZYLOPRIM 300 MG PO (08:52)
[2024-05-16] MEDS: PROSCAR 5 MG PO (08:52)
[2024-05-16] MEDS: ASPIR LOW (ENTERIC COATED) 162 MG PO (08:53)
[2024-05-16] MEDS: COREG PO (08:56)
[2024-05-16] MEDS: AZULFIDINE 500 MG PO ×3 (10:24→16:29)
[2024-05-16] MEDS: ENTRESTO 97 MG/103 MG 1 TAB PO (10:24)
[2024-05-16] MEDS: TYLENOL 650 MG PO (11:34)
--- NOTE | 2024-05-16 11:39 | CM ---
Patient sen bedside.
IA completed.
Patient up ambulating in halls and room.
Patient independent prior to admission without assistive deives.
Patient with o hx VN.
Denies home care needs at this time.
SO will transport home.
IMM completed.
PCP: Dr Pisano
Pharmacy:: [facility]
Plan: home no needs anticipated.
--- NOTE | 2024-05-16 12:55 | W.PN.GS2 ---
Today's Communication / Plan
-
Trend WBC
Assessment / Plan
-
78M POD1 s/p lap appy for perforated appendicitis with abscess
Doing well post-op
AFVSS
WBC increased 15K --> 20K, suspect reactive 2/2 surgery
Plan:
Cont reg diet
Cont zosyn
Trend WBC
Ambulate
DVT ppx
If WBC improved tomorrow would consider DC with 2 additional days abx (total 4 day course)
Subjective Data
-
Date of Service: May 16, 2024
AFVSS, feels well, pain controlled, OOBTC, voiding, temi PO
Objective Data
-
Intake and Output
05/15/24 05/16/24 05/17/24
06:59 06:59 06:59
Intake Total 820 / 820
Output Total 330 / 330
Balance 490 / 490
Intake:
IV fluids (Total) 720 / 720
IV piggybacks 100 / 100
Output:
Drain Output (Total) 30 / 30
Left Lower Abdomen Nestor- 30 / 30
Mejia
Urine, Voided 300 / 300
Vital Signs
Temp Pulse Resp BP Pulse Ox
98.0 F 79 16 126/95 96
05/16/24 11:05 05/16/24 11:05 05/16/24 11:05 05/16/24 11:05 05/16/24 11:05
Lab Results
05/16/24 04:42
05/16/24 04:42
Calcium 8.3 mg/dl (8.4-10.2) L 05/16/24 04:42
Total Bilirubin 0.9 mg/dl (0.2-1.3) 05/16/24 04:42
AST 26 U/L (17-59) 05/16/24 04:42
ALT 24 U/L (0-50) 05/16/24 04:42
Alkaline Phosphatase 62 U/L (38-126) 05/16/24 04:42
Total Protein 5.7 g/dl (6.3-8.2) L 05/16/24 04:42
Albumin 3.2 g/dl (3.5-5.0) L 05/16/24 04:42
Physical Exam
-
Gen: NAD
Abd: soft, approp ttp, drain ss, incisions cdi
--- NOTE | 2024-05-16 16:03 | CON.ID ---
Consultation
-
Date/Time Consultation Requested: 05/16/2024 1512
Date/Time Consultation Performed: 05/16/2024 1600
Requesting Provider: Dr. Weeks
Performing Provider: Dr. Price
Reason for Consultation: Appendiceal abscess
Chief Complaint / Past History
History of Present Illness
Bhavesh Cole is a 78-year-old man with a significant past medical history of CAD and ulcerative colitis being evaluated at the request of Dr. Weeks regarding appendicitis. History is obtained from chart review, along with patient interview.
The patient presented to the emergency room at [facility] on 05/15 following the development of acute right lower quadrant abdominal discomfort earlier that morning. Patient reported that he woke up from sleep around 4 AM with right lower
quadrant pain, and the pain had been persistent since. He initially admitted to vomiting and dry heaves. Workup in the ER revealed leukocytosis, and imaging revealed acute appendicitis with suspected small localized perforation. The patient was
taken to the operating room last evening for a laparoscopic appendectomy, with the finding of perforated acute appendicitis. Cultures intraoperatively were obtained. Today's white count has risen, and Infectious Diseases is asked to comment on
further antimicrobial therapy.
At present, patient reports some ongoing incisional discomfort. He denies any current fevers or chills.
Past History
Additional Past Medical History:
Ulcerative colitis
BPH
HTN
Dyslipidemia
CAD
Gout
Cardiomyopathy
Additional Past Surgical History:
AICD
Bilateral inguinal hernia repair
Allergy History:
No Known Allergies Allergy (Verified 05/15/24 09:56)
Medications Reviewed: Yes
Current Antibiotics:
Zosyn 3.375 g IV every 6 hours
Social History
Tobacco: Non-Smoker
Alcohol: Occasional
Drug: None
Personal: (seperated)
Employment: Retired
Family History
Family History: Not Pertinent
Review of Systems
Vital Signs
Temp Pulse Resp BP Pulse Ox
98.0 F 79 16 126/95 96
05/16/24 11:05 05/16/24 11:05 05/16/24 11:05 05/16/24 11:05 05/16/24 11:05
Physical Exam
Physical Exam
Constitutional: No Acute Distress, Comfortable and Non-toxic
Eyes: No Conjunctival Hemorrhage and Sclera Anicteric
Cardiovascular: Regular Rate and S1/S2; Negative S3/S4
Pulmonary: Clear; Negative Wheezes or Rales
Gastrointestinal: Soft, Tender, Non Distended, Normal Bowel Sounds, No Rebound, No Guarding and Other (Incisional wounds without periwound erythema.)
Neurological: Awake and Alert
Psychological: Calm
Lab / Diagnostic Study Results
05/16/24 04:42
05/16/24 04:42
Abs Immat Gran (auto) 0.1 10^3/uL (0-0.05) H 05/16/24 04:42
Absolute Neuts (auto) 19.6 10^3/uL (1.4-6.5) H 05/16/24 04:42
Absolute Lymphs (auto) 0.5 10^3/uL (1.2-3.4) L 05/16/24 04:42
Absolute Monos (auto) 0.5 10^3/uL (0.1-0.6) 05/16/24 04:42
Absolute Basos (auto) 0.0 10^3/uL (0-0.2) 05/16/24 04:42
Immature Gran % 0.5 % (0-0.5) 05/16/24 04:42
Neutrophils % 94.9 % (42.2-75.2) H 05/16/24 04:42
Lymphocytes % 2.3 % (20.5-51.1) L 05/16/24 04:42
Monocytes % 2.2 % (1.7-9.3) 05/16/24 04:42
Eosinophils % 0.0 % (0-6) 05/16/24 04:42
Basophils % 0.1 % (0-2) 05/16/24 04:42
Microbiology Results
Micro:
05/15/24 18:53 Anaerobic Culture - Preliminary
Appendix Culture pending. Anaerobic cultures are examined after 3
days incubation. Additional information to follow.
05/15/24 18:53 Wound Culture - Preliminary
Appendix Gram Stain - Preliminary
Imaging:
05/15/2024 CT abdomen/pelvis with IV contrast: There is marked right lower quadrant inflammatory changes likely centered around a small tubular structure, most likely representing the appendix, and most likely representing acute appendicitis.
Evaluation is overall limited without oral contrast, but findings suggest accompanying small localized perforation. Please see full dictation for additional detail. Film personally viewed.
Assessment / Plan
Acute appendicitis with appendiceal abscess.
� S/p laparoscopic appendectomy 05/15/2024
Leukocytosis
- llikely component of recent surgery
Abdominal pain
Ulcerative colitis
BPH
HTN
Dyslipidemia
CAD
Gout
Cardiomyopathy
Recommendations:
Continue with empiric Zosyn.
Follow white count and temperature curve.
Await culture data to guide antibiotic selection and potential de-escalation.
[2024-05-16] MEDS: FLOMAX 0.8 MG PO (16:29)
--- NOTE | 2024-05-16 19:18 | W.PN.HOSP.TC ---
Addendum entered and electronically signed by Loi Erazo MD 05/16/24 23:16:
Attending Addendum-
I saw and evaluated the patient. I reviewed the resident�s note and agree with findings and plan as documented in the resident�s note. Sub: complains of pain @ incision, passing gas no bm yet. Full 12 point ROS reviewed and negative except as
documented Exam: Vitals reviewed in chart GEN-NAD heart RRR lungs clear abd soft pos BD incision CDI RICARDO drain in place with sanguineous fluid LE no edema
#Acute appendicitis with perforation and abscess
- 05/15- laparoscopic appendectomy and drainage of intra-abdominal abscess
- POD # 1
- monitor RICARDO drain OP
- ID c/s
- cont zosyn # 2
- follow cx results await sensi for deescalation
#Ulcerative colitis
-Continue sulfasalazine
#Permanent Pacemaker�syncope ,placed June 2013�syncope October 2013 pacemaker lead broke and it was removed
-changed [facility] PACEMAKER/ DEFIBRILLATOR [facility] [address] [facility]
#Chronic HFrEF
- not in exacerbation
- EF per patient 25% in August and September started on Entresto then echo January 2024 EF 40%
- cont coreg and entresto
#Nonobstructive CAD
Had cardiac cath September 2023 with some vessels occlusion less than 40% by Dr. Brandon [facility] at [facility]
-Continue aspirin 162 mg daily
-Continue Lipitor 40 mg at bedtime, Coreg 12.5 mg daily
#HTN
-Continue Coreg 12.5 mg p.o. daily
#HLD
-Continue Lipitor 40 mg at bedtime
#BPH
-Continue Flomax 0.8 mg every afternoon, finasteride 5 mg daily
-Bladder scan per protocol
#Gout
-Continue allopurinol 300 mg daily
DVT prophylaxis
SCDs until after surgery then consider subcu Lovenox or heparin
Time spent coordinating care, review of plan of care with resident, personally reviewed records in EMR, med rec, consults, notes, labs, radiology, d/w nursing � 59 mins
Original Note:
Today's Communication/Plan
-
Follow-up with infectious disease
Trend WBC count and temperature curve
Assessment / Plan
Assessment / Plan
Acute appendicitis post laparoscopic appendectomy:
-Continue regular diet
-Postsurgery day 1
-Was able to urinate and was able to pass flatus
-Abscess found during surgery and sent for cultures, pending results
-Infectious disease consulted, follow white count and temperature curve
-Continue IV Zosyn
-Limit heavy Physical activity for first 3 to 5 days after surgery
Leukocytosis:
-May be due to infection from abscess
Normocytic anemia:
-Continue to observe
Benign hypertension:
-Continue carvedilol
Ulcerative colitis:
-Continue sulfasalazine
Hyperlipidemia:
-Continue Lipitor
Benign prostatic hyperplasia:
-Continue Flomax and finasteride
Gout:
-Continue allopurinol
Anticipated Discharge: 24 - 48 hours
Subjective/Interval History
-
Date of Service: May 16, 2024
Patient is a 78-year-old male who woke up at 4 AM yesterday with right lower quadrant abdominal pain which progressively got worse and more consistent, with multiple episodes of dry heaving and 1 episode of vomiting. Abdominal pelvis CT scan was
performed and he was diagnosed with acute appendicitis. Started on IV Zosyn and IV Zofran. General surgery consulted and he went in for a laparoscopic appendectomy and drainage of abscess in the retrovesicular space today's postoperative day 1.
Currently on IV fluids. Currently on IV Zosyn. Has a RICARDO drain drawing blood.
He had an episode of hypotension overnight with systolic blood pressure in 80s and carvedilol was temporarily held due to hypotension
Objective Data
-
Vital Signs:
Vital Signs
Temp Pulse Resp BP Pulse Ox
97.7 F 73 16 121/62 99
05/16/24 15:15 05/16/24 15:15 05/16/24 15:15 05/16/24 15:15 05/16/24 15:15
I&O
05/15/24 05/16/24 05/17/24
06:59 06:59 06:59
Intake Total 820 / 820 560 / 560
Output Total 330 / 330
Balance 490 / 490 560 / 560
Review of Systems
-
History Source: Patient
Constitutional: Denies Fever or Fatigue
Respiratory: Denies Cough or Trouble Breathing
Cardiac: Denies Chest Pain, Diaphoresis, Palpitations, Syncope or PND
Abdomen/GI: Reports Abdominal Pain; Denies Nausea or Vomiting
Genitourinary: Denies Dysuria or Flank Pain
Musculoskeletal: Denies Joint Pain
Physical Exam
-
General: Well Developed and Well Nourished
Respiratory: Clear to Auscultation
Cardiac: Regular Rhythm and S1/S2
GI: Normal Bowel Sounds and Tender (At the incision sites)
Musculoskeletal: No Edema
Skin: Warm and Dry
Neuro: Awake, Alert, Oriented and AO x 3
Data Reviewed
-
Medical Tests (Nuc Med, Echo etc): Image personally visualized and interpreted and Discussed with Physician
Labs: Labs Reviewed by me and Discussed with Physician
[2024-05-16] MEDS: LIPITOR 40 MG PO (21:38)
[2024-05-16] MEDS: DESYREL 50 MG PO (22:31)
[2024-05-17 03:25] VITALS: BP 103/55
[2024-05-17] MEDS: ZOSYN 50 IV ×4 (03:30→22:01)
[2024-05-17] MEDS: PERCOCET 5/325 1 TABLET PO ×2 (03:30→07:40)
[2024-05-17 03:39] LABS: % Basophils 0.1 % (0-2); % Eosinophils 0.2 % (0-6); % Immature Granulocytes 0.7 % (0-0.5); % Lymphocytes 2.2 % (20.5-51.1); % Monocytes 2.4 % (1.7-9.3); % Neutrophils 94.4 % (42.2-75.2); Absolute Immature Granulocytes 0.1 10^3/uL (0-0.05); Absolute Lymphocytes 0.3 10^3/uL (1.2-3.4); Absolute Monocytes 0.3 10^3/uL (0.1-0.6); Absolute Neutrophils 13.5 10^3/uL (1.4-6.5); Hematocrit 37.6 % (39.0-52.0); Hemoglobin 12.1 g/dL (13.0-18.0); Mean Corp Hgb Conc. 32.2 g/dL (33.0-37.0); Mean Corpuscular Volume 93.3 fL (80.0-94.0); Mean Platelet Volume 11.5 fL (7.4-10.4); Nucleated Red Blood Cells % 0 % (-); Platelet Count 175 10^3/uL (130-400); Red Blood Cell Count 4.03 10^6/uL (4.70-6.10); Red Cell Dist. Width 14.4 % (11.5-14.5); White Blood Cell Count 14.3 10^3/uL (4.8-10.8)
[2024-05-17 04:01] LABS: Blood Urea Nitrogen 20 mg/dl (9-20); Calcium 8.5 mg/dl (8.4-10.2); Carbon Dioxide 23 mmol/L (22-30); Chloride 104 mmol/L (98-107); Estimated Creatinine Clearance 58 ml/min; Glucose 108 mg/dl (70-99); Potassium 4.1 mmol/L (3.5-5.1); Sodium 137 mmol/L (135-145); eGFR > 60.00
[2024-05-17 05:23] VITALS: BMI 28.0
[2024-05-17] MEDS: AZULFIDINE 500 MG PO ×3 (06:29→15:30)
[2024-05-17 07:05] VITALS: BP 116/62
[2024-05-17] MEDS: PROSCAR 5 MG PO (07:39)
[2024-05-17] MEDS: COREG 12.5 MG PO (07:39)
[2024-05-17] MEDS: ZYLOPRIM 300 MG PO (07:39)
[2024-05-17] MEDS: ENTRESTO 97 MG/103 MG 1 TAB PO (07:40)
[2024-05-17] MEDS: ASPIR LOW (ENTERIC COATED) 162 MG PO (07:40)
--- NOTE | 2024-05-17 09:07 | W.PN.HOSP.TC ---
Addendum entered and electronically signed by Loi Erazo MD 05/17/24 22:27:
Attending Addendum-
I saw and evaluated the patient. I reviewed the resident�s note and agree with findings and plan as documented in the resident�s note. Sub: 'i feel good now!' passing gas no bm yet. febrile today. seen with entire family present. Full 12 point ROS
reviewed and negative except as documented Exam: Vitals reviewed in chart GEN-NAD heart RRR lungs clear abd soft pos BD lap incision CDI/glued, RICARDO incision CDI LE no edema
#Acute appendicitis with perforation and abscess
- febrile today
- 05/15- laparoscopic appendectomy and drainage of intra-abdominal abscess
- POD # 2
- DC RICARDO drain 05/17
- ID c/s appreciated
- cont zosyn # 3
- abscess cx - e coli, proteus, and group f strep- await sensi for deescalation
- wbc trending down
#Ulcerative colitis
-Continue sulfasalazine
#Permanent Pacemaker�syncope ,placed June 2013�syncope October 2013 pacemaker lead broke and it was removed
-changed to PACEMAKER/ DEFIBRILLATOR in December [address] Brandon [facility]SH [facility]
#Chronic HFrEF
- not in exacerbation
- EF per patient 25% in August and September started on Entresto then echo January 2024 EF 40%
- cont coreg and entresto
#Nonobstructive CAD
Had cardiac cath September 2023 with some vessels occlusion less than 40% by Dr. Brandon [facility] at [facility]
-Continue aspirin 162 mg daily
-Continue Lipitor 40 mg at bedtime, Coreg 12.5 mg daily
#HTN
-Continue Coreg 12.5 mg p.o. daily
#HLD
-Continue Lipitor 40 mg at bedtime
#BPH
-Continue Flomax 0.8 mg every afternoon, finasteride 5 mg daily
-Bladder scan per protocol
#Gout
-Continue allopurinol 300 mg daily
DVT prophylaxis
SCDs early ambulation
Time spent coordinating care, review of plan of care with resident, personally reviewed records in EMR, med rec, consults, notes, labs, radiology, d/w nursing, ID � 58 mins
Original Note:
Today's Communication/Plan
-
- follow up with infectious disease
Assessment / Plan
Assessment / Plan
Acute appendicitis post laparoscopic appendectomy:
-Continue regular diet
-Postsurgery day 1
- Ricardo drain removed today 05/17
-Was able to urinate and was able to pass flatus, did not have a bowel movement today 05/17
-Awaiting consult from infectious disease, culture came back sensitive for proteus, e.coli, and group f streptococcus 05/17
-Continue on Percocet every 4 hourly for pain 05/17
-Continue IV Zosyn as per ID 05/17
-Limit heavy Physical activity for first 3 to 5 days after surgery
Leukocytosis:
-WBC count is trending down today it is 14.5 from 20 05/17
-May be due to infection from abscess vs having recent surgery
Normocytic anemia:
-Continue to observe
Benign hypertension:
-Continue carvedilol
Ulcerative colitis:
-Continue sulfasalazine
Hyperlipidemia:
-Continue Lipitor
Benign prostatic hyperplasia:
-Continue Flomax and finasteride
Gout:
-Continue allopurinol
Anticipated Discharge: 24 - 48 hours
Subjective/Interval History
-
Date of Service: May 17, 2024
Patient feels abdominal pain, mostly at the insertional sites, and to a lesser extent the right side of his abdomen, has gotten worse since yesterday, currently on Percocet every 4 hourly to manage the pain. Patient has a RICARDO drain which is draining
blood. No fever, chills, nausea, vomiting, diarrhea, headache.
Objective Data
-
Labs:
Laboratory Results
05/17/24
03:27
WBC 14.3 H
Hgb 12.1 L
Hct 37.6 L
Plt Count 175
Sodium 137
Potassium 4.1
Chloride 104
Carbon Dioxide 23
BUN 20
Creatinine 0.9
Glucose 108 H
Calcium 8.5
Vital Signs:
Vital Signs
Temp Pulse Resp BP Pulse Ox
98.4 F 85 16 116/62 95
05/17/24 07:05 05/17/24 07:39 05/17/24 07:05 05/17/24 07:39 05/17/24 07:05
I&O
05/16/24 05/17/24 05/18/24
06:59 06:59 06:59
Intake Total 820 / 820 1380 / 1380
Output Total 330 / 330 610 / 610
Balance 490 / 490 770 / 770
Review of Systems
-
History Source: Patient
Constitutional: Denies Fever or Chills
Respiratory: Denies Cough or Trouble Breathing
Cardiac: Denies Chest Pain, Diaphoresis, Palpitations or Syncope
Abdomen/GI: Reports Abdominal Pain; Denies Nausea, Vomiting, Diarrhea or Constipated
Genitourinary: Denies Dysuria
Musculoskeletal: Denies Joint Pain
Physical Exam
-
Respiratory: Clear to Auscultation
Cardiac: Regular Rhythm and S1/S2
GI: Soft, Normal Bowel Sounds and Tender (Around the incision sites)
Musculoskeletal: No Edema
Skin: Warm and Dry
Neuro: Awake, Alert and Oriented
Data Reviewed
-
Medical Tests (Nuc Med, Echo etc): Image personally visualized and interpreted and Discussed with Physician
Labs: Labs Reviewed by me and Discussed with Physician
--- NOTE | 2024-05-17 10:51 | W.PN.GS2 ---
Today's Communication / Plan
-
`
Assessment / Plan
-
78M POD2 s/p lap appy for perforated appendicitis with abscess
Doing well post-op
AFVSS
WBC improved to 14 today
Preliminary cultures with WBC and polymicrobial await sensitivities and culture results -
Plan:
RICARDO removed at bedside and dressing applied
Okay to shower
Currently on Zosyn -ID following
From surgical standpoint okay for discharge with transition to oral antibiotics per ID recommendations
(typically surgically we would treat for 5 to 7 days Augmentin pending cultures postop given source control with appendectomy)
Subjective Data
-
Date of Service: May 17, 2024
Patient seen and examined
Some residual incisional discomfort
Tolerating regular diet, passing flatus, no bowel movement yet
No nausea
Ambulated yesterday
Objective Data
-
Intake and Output
05/16/24 05/17/24 05/18/24
06:59 06:59 06:59
Intake Total 820 / 820 1380 / 1380
Output Total 330 / 330 610 / 610
Balance 490 / 490 770 / 770
Intake:
Oral fluids 1280 / 1280
IV fluids (Total) 720 / 720
IV piggybacks 100 / 100 100 / 100
Output:
Drain Output (Total) 30 / 30 10 / 10
Left Lower Abdomen Nestor- 30 / 30 10 / 10
Mejia
Urine, Voided 300 / 300 600 / 600
Other:
Number of approximated MODERATE 2
amounts of urine
Vital Signs
Temp Pulse Resp BP Pulse Ox
98.4 F 85 16 116/62 95
05/17/24 07:05 05/17/24 07:39 05/17/24 07:05 05/17/24 07:39 05/17/24 08:00
Lab Results
05/17/24 03:27
05/17/24 03:27
Calcium 8.5 mg/dl (8.4-10.2) 05/17/24 03:27
Total Bilirubin 0.9 mg/dl (0.2-1.3) 05/16/24 04:42
AST 26 U/L (17-59) 05/16/24 04:42
ALT 24 U/L (0-50) 05/16/24 04:42
Alkaline Phosphatase 62 U/L (38-126) 05/16/24 04:42
Total Protein 5.7 g/dl (6.3-8.2) L 05/16/24 04:42
Albumin 3.2 g/dl (3.5-5.0) L 05/16/24 04:42
Physical Exam
-
NAD AAOx3
ABD: Soft, minimally distended, tender to palpation at incision sites
Incisions with glue dressing
RICARDO with serosanguineous fluid -not purulent
[2024-05-17 11:05] VITALS: BP 113/61
[2024-05-17 14:45] VITALS: BP 131/64
[2024-05-17] MEDS: TYLENOL 650 MG PO ×2 (14:55→22:33)
--- NOTE | 2024-05-17 15:33 | W.PN.ID1 ---
Date of Service
Date of Service: May 17, 2024
Today's Communication
Post operative fever noted - would not recommend further workup or treatment at this moment
Continue with empiric Zosyn, follow for sensitivities of the identified pathogens which are likely well covered by current antibiotics. suspect we may be able to deescalate when sensitivities back tomorrow.
Assessment / Plan
Acute appendicitis with appendiceal abscess.
� S/p laparoscopic appendectomy 05/15/2024
Leukocytosis
- llikely component of recent surgery
Abdominal pain
Ulcerative colitis
BPH
HTN
Dyslipidemia
CAD
Gout
Cardiomyopathy
Recommendations:
Post operative fever noted - would not recommend further workup or treatment at this moment
Continue with empiric Zosyn, follow for sensitivities of the identified pathogens which are likely well covered by current antibiotics. suspect we may be able to deescalate when sensitivities back tomorrow.
Follow white count and temperature curve.
Chief Complaint
-: Fever and Other (abdominal abscess)
Subjective / Review of Systems
febrile to 102.1
bp stable
no events overnight
abdominal pain lessening
Vital Signs / Physical Exam
Vital Signs
Vital Signs
Temp Pulse Resp BP Pulse Ox
102.1 F H 92 18 131/64 93
05/17/24 14:45 05/17/24 14:45 05/17/24 14:45 05/17/24 14:45 05/17/24 14:45
Physical Exam
Constitutional: No Acute Distress
Cardiovascular: Regular Rate and S1/S2; Negative Murmur or Rub
Pulmonary: Clear and Symmetric; Negative Wheezes or Rales
Gastrointestinal: Soft, Non Tender, Non Distended and Normal Bowel Sounds
Skin: Warm and Dry; Negative Rash or Jaundice
Wound: Other (dressing clean, dry, intact,)
Objective Data
Lab Data
Lab Results
05/17/24 03:27
05/17/24 03:27
Estimated Creat Clear 58 ml/min 05/17/24 03:27
Total Bilirubin 0.9 mg/dl (0.2-1.3) 05/16/24 04:42
AST 26 U/L (17-59) 05/16/24 04:42
ALT 24 U/L (0-50) 05/16/24 04:42
Alkaline Phosphatase 62 U/L (38-126) 05/16/24 04:42
Most recent labs reviewed.
Micro Results:
05/15/24 18:53 Wound Culture - Preliminary
Appendix Proteus mirabilis
Escherichia coli
Group F Streptococcus
Gram Stain - Preliminary
05/15/24 18:53 Anaerobic Culture - Preliminary
Appendix Culture pending. Anaerobic cultures are examined after 3
days incubation. Additional information to follow.
Imaging:
05/15/2024 CT abdomen/pelvis with IV contrast: There is marked right lower quadrant inflammatory changes likely centered around a small tubular structure, most likely representing the appendix, and most likely representing acute appendicitis.
Evaluation is overall limited without oral contrast, but findings suggest accompanying small localized perforation. Please see full dictation for additional detail. Film personally viewed.
Care Review
Plan reviewed with: Physician (Dr Weeks - suma salvador, post op fever)
[2024-05-17] MEDS: FLOMAX 0.8 MG PO (17:15)
[2024-05-17 19:22] VITALS: BP 132/72
[2024-05-17] MEDS: DESYREL 50 MG PO (22:01)
[2024-05-17] MEDS: LIPITOR 40 MG PO (22:01)
[2024-05-17 22:25] VITALS: BP 110/54
[2024-05-18 03:00] VITALS: BP 98/51
[2024-05-18] MEDS: ZOSYN 50 IV ×2 (03:41→10:26)
[2024-05-18 06:00] VITALS: BMI 27.5
[2024-05-18 06:30] LABS: % Basophils 0.5 % (0-2); % Eosinophils 0.8 % (0-6); % Immature Granulocytes 0.7 % (0-0.5); % Lymphocytes 4.3 % (20.5-51.1); % Monocytes 5.3 % (1.7-9.3); % Neutrophils 88.4 % (42.2-75.2); Absolute Eosinophils 0.1 10^3/uL (0-0.7); Absolute Immature Granulocytes 0.1 10^3/uL (0-0.05); Absolute Lymphocytes 0.4 10^3/uL (1.2-3.4); Absolute Monocytes 0.5 10^3/uL (0.1-0.6); Absolute Neutrophils 7.5 10^3/uL (1.4-6.5); Hematocrit 33.4 % (39.0-52.0); Hemoglobin 10.6 g/dL (13.0-18.0); Mean Corp Hgb Conc. 31.7 g/dL (33.0-37.0); Mean Corpuscular Hgb 30.3 pg (27.0-31.0); Mean Corpuscular Volume 95.4 fL (80.0-94.0); Mean Platelet Volume 11.9 fL (7.4-10.4); Nucleated Red Blood Cells % 0 % (-); Platelet Count 157 10^3/uL (130-400); Red Cell Dist. Width 14.5 % (11.5-14.5); White Blood Cell Count 8.4 10^3/uL (4.8-10.8)
[2024-05-18 06:54] LABS: Blood Urea Nitrogen 17 mg/dl (9-20); Calcium 8.3 mg/dl (8.4-10.2); Carbon Dioxide 24 mmol/L (22-30); Chloride 101 mmol/L (98-107); Estimated Creatinine Clearance 58 ml/min; Glucose 97 mg/dl (70-99); Potassium 3.8 mmol/L (3.5-5.1); Sodium 134 mmol/L (135-145); eGFR > 60.00
[2024-05-18 07:05] VITALS: BP 116/60
[2024-05-18] MEDS: PROSCAR 5 MG PO (07:46)
[2024-05-18] MEDS: ASPIR LOW (ENTERIC COATED) 162 MG PO (07:46)
[2024-05-18] MEDS: AZULFIDINE 500 MG PO ×2 (07:46→11:21)
[2024-05-18] MEDS: COREG 12.5 MG PO (07:46)
[2024-05-18] MEDS: ENTRESTO 97 MG/103 MG 1 TAB PO (07:46)
[2024-05-18] MEDS: ZYLOPRIM 300 MG PO (07:46)
--- NOTE | 2024-05-18 08:14 | W.DCSUMMARY ---
Addendum entered and electronically signed by Loi Erazo MD 05/19/24 00:28:
Read, reviewed, and agree. See same day progress note for additional details.
Cruzito Erazo MD
Original Note:
Documented by User: Derek Weeks MD, Resident 05/18/24 18:32
Discharge Summary
Discharge Data
Date of Admission: 05/15/24
Date of Discharge: 05/18/24
-
Pending Results: Yes
Hospital Course
Patient is a 78-year-old male, full code, PCP . Patient was admitted to the emergency department on 05/15/2024 because he woke up at 4 AM with right lower quadrant abdominal pain which progressively got worse and more consistent, with
multiple episodes of dry heaving and one episode of vomiting. abdominal pelvic CT scan was performed which showed right lower quadrant inflammatory changes centered around a small tubular structure most likely representing appendix and was thus
subsequently diagnosed with acute appendicitis. Started on IV Zosyn and IV Zofran. General surgery consulted and he went in for a laparoscopic appendectomy and drainage of abscess in the retrovesicular space. Post surgery he is on IV fluids and
IV Zosyn with a RICARDO drain that was draining blood and eventually removed on 05/17/2024. His abscess culture was sent and resulted in Proteus Mirabilis, Escherichia coli, group A streptococcus so he was continued on IV Zosyn until his discharge today
where he was transitioned to oral Augmentin 875 p.o. twice daily for 5 days. Also today he is complaining of loose stools that occurred yesterday night but had subsided since 6 AM this morning. General surgery, infectious disease also consulted,
seen patient and have agreed with discharge plan.
Repeat CBC and CMP with primary care provider in 1 week.
Patient also had a WBC count of 20.7 on admission which decreased to 8.4 on discharge.
Ulcerative colitis�continue sulfasalazine
Chronic heart failure with reduced ejection fraction�no clinical symptoms, Continue Coreg and Entresto
Nonobstructive coronary artery disease�continue aspirin, continue Lipitor
Hypertension�continue Lipitor
BPH�continue Flomax, finasteride
Gout�continue allopurinol
Discharge Plan
-
Patient Disposition: Home (Routine Discharge)
Discharge Diagnosis/Procedures: Acute appendicitis status post appendectomy, ulcerative colitis, Permanent pacemaker, Chronic heart failure with reduced ejection fraction, non-obstructive coronary artery disease, Hypertension, Hyperlipidemia,
Benign prostatic hyperplasia, Gout
Condition: Good
Diet: Regular
Activity: No strenuous activity
Driving Restrictions: As prior to admission
Bathing Restrictions: OK to Shower
Activity Restrictions/Additional Instructions:
CBC and CMP in 1 week with Primary Care Doctor.
Instructions following Laparoscopic appendectomy
Please call [phone] if you have any questions or concerns after your surgery.
Wound Care:
Your incisions are covered with skin glue which will come off on its own in 5-10 days.
It is ok to shower the day after your surgery. Do not scrub the incisions, let soap and water wash over them and pat dry.
� Bruising around your incisions is normal.
� Using ice packs will help minimize this swelling.
� No swimming or soaking incisions for 1 week.
� Your stitches will dissolve and do not need to be removed.
Urinary retention:
If you are unable to urinate 6-8 hours after your surgery, please call [phone] to discuss further management.
Activity:
No heavy lifting more than 15 pounds for the next 3 weeks, then you may gradually lift heavier objects as tolerated by discomfort. Otherwise activity as tolerated by your comfort level.
Pain Management:
Use Tylenol, ibuprofen and ice packs to treat your pain.
� You may take 650 milligrams of Tylenol (Max 3 grams per day) every 6 hours, and 600 mg of ibuprofen also every 6 hours. (you can alternate them every 3 hours)
� You may use an ice pack to your incision as needed.
� If you still have pain not controlled by these measures, take your prescription pain medication if prescribed.
Medications:
You may resume your home medications.
Bowel Medications:
Prescription pain medication can make you constipated. If you take this medication, also take colace 100 mg twice daily (this is over the counter). If this is not sufficient, you may take Miralax (polyethylene glycol) to help move your bowels.
Diet:
After your procedure, there are no dietary restrictions.
Driving restrictions:
No driving if you are taking prescription pain medication or if you think your normal reaction time and attentiveness has been slowed by your surgery.
Things to Look out for:
[Worsening Abdominal pain, redness or drainage from incision]
Call Doctor for:
Please call if you notice worsening redness or drainage from incision(s) lasting longer than 5 days after your surgery, any foul-smelling drainage from the incision, pain not controlled by pain medications, persistent nausea and vomiting, or for any
fevers greater than 101.3 F. The number for questions/concerns is [phone]
Follow-up:
A follow-up appointment will be scheduled with your surgeon in 3-4 weeks. Please call prior to your appointment if you have any questions or concerns. [phone]
Referrals:
Poncho Perry MD [Active] - in three to four weeks
Marisol Mcintosh MD [Family Provider] - in less than 1 week
Prescriptions:
New
amoxicillin-pot clavulanate 875-125 mg tablet
1 tab PO BID Qty: 10 0RF
Continued
tamsulosin [Flomax] 0.4 mg Capsule
0.8 mg PO QPM
Aspir-81
162 mg PO DAILY Qty: 30 0RF
atorvastatin [Lipitor] 40 mg Tablet
40 mg PO HS Qty: 30 0RF
carvedilol [Coreg] 6.25 mg Tablet
12.5 mg PO DAILY Qty: 30 0RF
sulfasalazine 500 mg Tablet
500 mg PO AC Qty: 30 0RF
trazodone 50 mg Tablet
50 mg PO HS Qty: 30 0RF
allopurinol 300 mg Tablet
300 mg PO DAILY Qty: 30 0RF
finasteride 5 mg Tablet
5 mg PO DAILY Qty: 30 0RF
sacubitril-valsartan [Entresto] 97-103 mg Tablet
1 tab PO DAILY Qty: 30 0RF
Patient Comments:
05/15/24-patient stated he takes his second occasionally
Discharge Orders:
Discharge Patient (As Directed); Ordered 05/18/24
Ordered By: Derek Weeks
Discharge Date and Time
Discharge Date/Time: 05/18/24 15:50
Print Language: ICELANDIC

Documented by User: Loi Erazo MD 05/19/24 00:24
Discharge Summary
Discharge Data
Date of Admission: 05/15/24
Date of Discharge: 05/19/24
Discharge Plan
-
Patient Disposition: Home (Routine Discharge)
Discharge Diagnosis/Procedures: Acute appendicitis status post appendectomy, ulcerative colitis, Permanent pacemaker, Chronic heart failure with reduced ejection fraction, non-obstructive coronary artery disease, Hypertension, Hyperlipidemia,
Benign prostatic hyperplasia, Gout
Condition: Good
Diet: Regular
Activity: No strenuous activity
Driving Restrictions: As prior to admission
Bathing Restrictions: OK to Shower
Activity Restrictions/Additional Instructions:
CBC and CMP in 1 week with Primary Care Doctor.
Instructions following Laparoscopic appendectomy
Please call [phone] if you have any questions or concerns after your surgery.
Wound Care:
Your incisions are covered with skin glue which will come off on its own in 5-10 days.
It is ok to shower the day after your surgery. Do not scrub the incisions, let soap and water wash over them and pat dry.
� Bruising around your incisions is normal.
� Using ice packs will help minimize this swelling.
� No swimming or soaking incisions for 1 week.
� Your stitches will dissolve and do not need to be removed.
Urinary retention:
If you are unable to urinate 6-8 hours after your surgery, please call [phone] to discuss further management.
Activity:
No heavy lifting more than 15 pounds for the next 3 weeks, then you may gradually lift heavier objects as tolerated by discomfort. Otherwise activity as tolerated by your comfort level.
Pain Management:
Use Tylenol, ibuprofen and ice packs to treat your pain.
� You may take 650 milligrams of Tylenol (Max 3 grams per day) every 6 hours, and 600 mg of ibuprofen also every 6 hours. (you can alternate them every 3 hours)
� You may use an ice pack to your incision as needed.
� If you still have pain not controlled by these measures, take your prescription pain medication if prescribed.
Medications:
You may resume your home medications.
Bowel Medications:
Prescription pain medication can make you constipated. If you take this medication, also take colace 100 mg twice daily (this is over the counter). If this is not sufficient, you may take Miralax (polyethylene glycol) to help move your bowels.
Diet:
After your procedure, there are no dietary restrictions.
Driving restrictions:
No driving if you are taking prescription pain medication or if you think your normal reaction time and attentiveness has been slowed by your surgery.
Things to Look out for:
[Worsening Abdominal pain, redness or drainage from incision]
Call Doctor for:
Please call if you notice worsening redness or drainage from incision(s) lasting longer than 5 days after your surgery, any foul-smelling drainage from the incision, pain not controlled by pain medications, persistent nausea and vomiting, or for any
fevers greater than 101.3 F. The number for questions/concerns is [phone]
Follow-up:
A follow-up appointment will be scheduled with your surgeon in 3-4 weeks. Please call prior to your appointment if you have any questions or concerns. [phone]
Referrals:
Poncho Perry MD [Active] - in three to four weeks
Marisol Mcintosh MD [Family Provider] - in less than 1 week
Prescriptions:
New
amoxicillin-pot clavulanate 875-125 mg tablet
1 tab PO BID Qty: 10 0RF
Continued
tamsulosin [Flomax] 0.4 mg Capsule
0.8 mg PO QPM
Aspir-81
162 mg PO DAILY Qty: 30 0RF
atorvastatin [Lipitor] 40 mg Tablet
40 mg PO HS Qty: 30 0RF
carvedilol [Coreg] 6.25 mg Tablet
12.5 mg PO DAILY Qty: 30 0RF
sulfasalazine 500 mg Tablet
500 mg PO AC Qty: 30 0RF
trazodone 50 mg Tablet
50 mg PO HS Qty: 30 0RF
allopurinol 300 mg Tablet
300 mg PO DAILY Qty: 30 0RF
finasteride 5 mg Tablet
5 mg PO DAILY Qty: 30 0RF
sacubitril-valsartan [Entresto] 97-103 mg Tablet
1 tab PO DAILY Qty: 30 0RF
Patient Comments:
05/15/24-patient stated he takes his second occasionally
Discharge Orders:
Discharge Patient (As Directed); Ordered 05/18/24
Ordered By: Derek Weeks
Discharge Date and Time
Discharge Date/Time: 05/18/24 15:50
Print Language: ICELANDIC
--- NOTE | 2024-05-18 08:42 | W.PN.HOSP.TC ---
Addendum entered and electronically signed by Loi Erazo MD 05/19/24 00:27:
Attending Addendum-
I saw and evaluated the patient. I reviewed the resident�s note and agree with findings and plan as documented in the resident�s note. Sub: Feels good. had BM and passing gas. pain well controlled. Full 12 point ROS reviewed and negative except as
documented Exam: Vitals reviewed in chart GEN-NAD heart RRR lungs clear abd soft pos BD lap incision CDI/glued, RICARDO incision CDI LE no edema
#Acute appendicitis with perforation and abscess
- afebrile today
- 05/15- laparoscopic appendectomy and drainage of intra-abdominal abscess
- POD # 3
- DC RICARDO drain 05/17
- ID c/s appreciated
- cont zosyn-AUG on DC until 05/22
- abscess cx - e coli, proteus, and group f strep- reviewed sensi
- d/w surg and ID ok for dc home
#Ulcerative colitis
-Continue sulfasalazine
#Permanent Pacemaker�syncope ,placed June 2013�syncope October 2013 pacemaker lead broke and it was removed
-changed to PACEMAKER/ DEFIBRILLATOR in December [address] Brandon [facility]
#Chronic HFrEF
- not in exacerbation
- EF per patient 25% in August and September started on Entresto then echo January 2024 EF 40%
- cont coreg and entresto
#Nonobstructive CAD
Had cardiac cath September 2023 with some vessels occlusion less than 40% by Dr. Brandon [facility] at [facility]
-Continue aspirin 162 mg daily
-Continue Lipitor 40 mg at bedtime, Coreg 12.5 mg daily
#HTN
-Continue Coreg 12.5 mg p.o. daily
#HLD
-Continue Lipitor 40 mg at bedtime
#BPH
-Continue Flomax 0.8 mg every afternoon, finasteride 5 mg daily
-Bladder scan per protocol
#Gout
-Continue allopurinol 300 mg daily
DVT prophylaxis
SCDs early ambulation
DISPO DC HOME
Time spent coordinating care, DC planning, review of DC plan of care with resident, transition of care, review of records, med rec/scripts sent electronically, consults, notes, d/w consultants, nursing, family, and CM�35 mins
Original Note:
Today's Communication/Plan
-
.
Assessment / Plan
Assessment / Plan
Acute appendicitis post laparoscopic appendectomy:
-Continue regular diet
-Postsurgery day 3
- Surgery follow up in 3-4 weeks 05/18
- Discharged patient on augmentin 875 po bid for 5 days after reviewing culture sensitivities 05/18
-Was able to urinate and was able to pass flatus,had loose stools yesterday night,episodes reduced since today morning 05/18
- Ricardo drain removed today 05/17
-Awaiting consult from infectious disease, culture came back sensitive for proteus, e.coli, and group f streptococcus 05/17
-Limit heavy Physical activity for first 3 to 5 days after surgery
Leukocytosis:
-WBC count is trending down today it is 8.4 from 14.5 05/18
-May be due to infection from abscess vs having recent surgery
Normocytic anemia:
-Continue to observe
Benign hypertension:
-Continue carvedilol
Ulcerative colitis:
-Continue sulfasalazine
Hyperlipidemia:
-Continue Lipitor
Benign prostatic hyperplasia:
-Continue Flomax and finasteride
Gout:
-Continue allopurinol
Anticipated Discharge: Today
Subjective/Interval History
-
Date of Service: May 18, 2024
Had loose stools all night yesterday, has subsided now. Pain from yesterday in the abdominal area has also subsided.
Objective Data
-
Labs:
Laboratory Results
05/18/24
04:20
WBC 8.4
Hgb 10.6 L
Hct 33.4 L
Plt Count 157
Sodium 134 L
Potassium 3.8
Chloride 101
Carbon Dioxide 24
BUN 17
Creatinine 0.9
Glucose 97
Calcium 8.3 L
Vital Signs:
Vital Signs
Temp Pulse Resp BP Pulse Ox
98.2 F 82 16 116/60 96
05/18/24 07:05 05/18/24 07:46 05/18/24 07:05 05/18/24 07:46 05/18/24 08:00
I&O
05/17/24 05/18/24 05/19/24
06:59 06:59 06:59
Intake Total 1380 / 1380 290 / 290
Output Total 610 / 610
Balance 770 / 770 290 / 290
Review of Systems
-
History Source: Patient
Constitutional: Denies Fever or Weight Loss
Respiratory: Denies Cough, Hemoptysis, Trouble Breathing or Wheezing
Cardiac: Denies Chest Pain, Diaphoresis, Palpitations or Syncope
Abdomen/GI: Reports Abdominal Pain and Diarrhea; Denies Nausea, Vomiting or Constipated
Genitourinary: Denies Dysuria
Musculoskeletal: Denies Joint Pain
Physical Exam
-
Respiratory: Clear to Auscultation
Cardiac: Regular Rhythm and S1/S2
GI: Soft, Nondistended, Normal Bowel Sounds and Tender (near incision sites)
Musculoskeletal: No Edema
Skin: Warm and Dry
Neuro: Awake, Alert, Oriented and AO x 3
Data Reviewed
-
Medical Tests (Nuc Med, Echo etc): Image personally visualized and interpreted and Discussed with Physician
Labs: Labs Reviewed by me and Discussed with Physician
--- NOTE | 2024-05-18 08:55 | W.PN.GS2 ---
Today's Communication / Plan
-
dispo planning
Assessment / Plan
-
78M POD#3 s/p lap appy for perforated appendicitis with abscess
Doing well post-op
VSS, low grade fever last noc
WBC back to normal today
Passing stools, tolerating diet
CX: Proteus, ecoli, group f strep with sensitivities pending
Plan:
Okay to shower
ABX as per ID
Continue Regular diet
From surgical standpoint okay for discharge with transition to oral antibiotics per ID recommendations
(typically surgically we would treat for 5 to 7 days Augmentin pending cultures postop given source control with appendectomy)
Subjective Data
-
Date of Service: May 18, 2024
Patient seen and examined at bedside with Dr. Babb. Denies n/v. Tolerating PO intake. Passing loose stools. Minimal post op discomfort.
Objective Data
-
Intake and Output
05/17/24 05/18/24 05/19/24
06:59 06:59 06:59
Intake Total 1380 / 1380 290 / 290
Output Total 610 / 610
Balance 770 / 770 290 / 290
Intake:
Oral fluids 1280 / 1280 240 / 240
IV piggybacks 100 / 100 50 / 50
Output:
Drain Output (Total)
Left Lower Abdomen Nestor-
Mejia
Urine, Voided 600 / 600
Other:
Number of approximated SMALL 2
amounts of urine
Number of approximated MODERATE 2 1
amounts of urine
Vital Signs
Temp Pulse Resp BP Pulse Ox
98.2 F 82 16 116/60 96
05/18/24 07:05 05/18/24 07:46 05/18/24 07:05 05/18/24 07:46 05/18/24 08:00
Lab Results
05/18/24 04:20
05/18/24 04:20
Calcium 8.3 mg/dl (8.4-10.2) L 05/18/24 04:20
Total Bilirubin 0.9 mg/dl (0.2-1.3) 05/16/24 04:42
AST 26 U/L (17-59) 05/16/24 04:42
ALT 24 U/L (0-50) 05/16/24 04:42
Alkaline Phosphatase 62 U/L (38-126) 05/16/24 04:42
Total Protein 5.7 g/dl (6.3-8.2) L 05/16/24 04:42
Albumin 3.2 g/dl (3.5-5.0) L 05/16/24 04:42
Physical Exam
-
NAD AAOx3
ABD: Soft, NT, minimally tender to palpation at incision sites
Incisions with glue dressing, ecchymosis to umbilicus
Dressing removed from prior RICARDO site
--- NOTE | 2024-05-18 11:00 | CM ---
Chart reviewed
Met with pt at bedside
Possible d/c today
Pt reports he has ride home
Discussed IMM
Plan - anticipate home no needs
[2024-05-18 11:15] VITALS: BP 108/71
--- NOTE | 2024-05-18 13:23 | W.PN.ID1 ---
Date of Service
Date of Service: May 18, 2024
Today's Communication
Can transition Zosyn to Augmentin 875mg po bid through 05/22/24
Assessment / Plan
Acute appendicitis with appendiceal abscess.
� S/p laparoscopic appendectomy 05/15/2024
Leukocytosis
- likely component of recent surgery
-resolved
Ulcerative colitis
BPH
HTN
Dyslipidemia
CAD
Gout
Cardiomyopathy
Recommendations:
Post operative fever resolving.
Or cx: Proteus,E. coli, Group F streptococcus.
Can transition Zosyn to Augmentin 875mg po bid through 05/22/24
Chief Complaint
-: Fever and Other (abdominal abscess)
Subjective / Review of Systems
He feels well. No abd pain.
Vital Signs / Physical Exam
Vital Signs
Vital Signs
Temp Pulse Resp BP Pulse Ox
98.3 F 111 16 108/71 98
05/18/24 11:15 05/18/24 11:15 05/18/24 11:15 05/18/24 11:15 05/18/24 11:15
Physical Exam
Constitutional: No Acute Distress and Comfortable
Gastrointestinal: Soft, Non Tender and Non Distended
Neurological: AO x 3
Objective Data
Lab Data
Lab Results
05/18/24 04:20
05/18/24 04:20
Estimated Creat Clear 58 ml/min 05/18/24 04:20
Total Bilirubin 0.9 mg/dl (0.2-1.3) 05/16/24 04:42
AST 26 U/L (17-59) 05/16/24 04:42
ALT 24 U/L (0-50) 05/16/24 04:42
Alkaline Phosphatase 62 U/L (38-126) 05/16/24 04:42
Most recent labs reviewed.
Micro Results:
05/15/24 18:53 Anaerobic Culture - Preliminary
Appendix Culture pending. Anaerobic cultures are examined after 3
days incubation. Additional information to follow.
05/15/24 18:53 Wound Culture - Preliminary
Appendix Proteus mirabilis
Escherichia coli
Group F Streptococcus
Gram Stain - Preliminary
Imaging:
05/15/2024 CT abdomen/pelvis with IV contrast: There is marked right lower quadrant inflammatory changes likely centered around a small tubular structure, most likely representing the appendix, and most likely representing acute appendicitis.
Evaluation is overall limited without oral contrast, but findings suggest accompanying small localized perforation. Please see full dictation for additional detail. Film personally viewed.
[2024-05-18 15:15] VITALS: BP 134/70
--- NOTE | 2024-05-21 08:50 | W.PN.UPDATE ---
Update Note
Progress Note Update
Final OR cx resulted after patient was discharged. Polymicrobial organisms include ESBL-E. coli. I added cipro 500mg po bid x 5 days to the Augmentin. Cipro eRx's to pharmacy. I called and informed pt.
== END 2024-05-18 15:50 | disposition home or self-care (01) | DRG 398 ==
LOC: 2 SOUTH 17:08
PROVIDERS: Clinical Nurse Specialist Family Health; Physician Assistant; Student in an Organized Health Care Education/Training Program; Surgery; ADMITTING PHYSICIAN Internal Medicine; ATTENDING PHYSICIAN Family Medicine; CONSULT PHYSICIAN Internal Medicine Infectious Disease; CONSULT PHYSICIAN Surgery; EMERGENCY PHYSICIAN Emergency Medicine; FAMILY PHYSICIAN Internal Medicine
PROC: 0DTJ4ZZ Resection of Appendix, Percutaneous Endoscopic Approach (ICD-10-PCS; 2024-05-15)
PROC: 0W9J4ZZ Drainage of Pelvic Cavity, Percutaneous Endoscopic Approach (ICD-10-PCS; 2024-05-15)
DX: K35.33 Acute appendicitis with perforation, localized peritonitis, and gangrene, with abscess (principal); I42.9 Cardiomyopathy, unspecified; I50.22 Chronic systolic (congestive) heart failure; K51.30 Ulcerative (chronic) rectosigmoiditis without complications; I11.0 Hypertensive heart disease with heart failure; E78.5 Hyperlipidemia, unspecified; I25.10 Atherosclerotic heart disease of native coronary artery without angina pectoris; M10.9 Gout, unspecified; B96.20 Unspecified Escherichia coli [E. coli] as the cause of diseases classified elsewhere; D64.9 Anemia, unspecified; N40.0 Benign prostatic hyperplasia without lower urinary tract symptoms; Z79.899 Other long term (current) drug therapy; Z79.82 Long term (current) use of aspirin; Z95.810 Presence of automatic (implantable) cardiac defibrillator
CPT/HCPCS: 88304; 74177; 80048; 80053; 81003; 85025; 87070; 87075; 87076; 87077; 87147; 87185; 87186; 87205; 88341; 88342; 93005; 96361; 96365; 96375; 97162; 97166; 99285; C1776; Q9967

== ENCOUNTER 2025-03-26 06:20 | Day surgery (SDC) | payer MEDICARE, SELFPAY | END 2025-03-26 12:31 | disposition home or self-care (01) | LOC: GI 06:20 | PROVIDERS: ATTENDING PHYSICIAN Specialist | DX: Z12.11 Encounter for screening for malignant neoplasm of colon (principal); K51.50 Left sided colitis without complications; K57.30 Diverticulosis of large intestine without perforation or abscess without bleeding; K62.89 Other specified diseases of anus and rectum; Z85.038 Personal history of other malignant neoplasm of large intestine; Z98.0 Intestinal bypass and anastomosis status | CPT/HCPCS: 45380; 88305 ==